=== PATIENT | female | born 1955 | race Hispanic/Latino ===

== ENCOUNTER 2024-12-31 14:59 | Emergency (ER) | payer OTHER, MEDICARE ==
[2024-12-31] MEDS ORDERED: MECLIZINE HCL 12.5 MG TAB ONE (15:50)
[2024-12-31 16:16] LABS: Absolute Lymphocytes (CBC) 0.9 K/uL (0.7-4.9); Hematocrit 37.6 % (36.0-45.0); Hemoglobin 12.4 g/dL (12.0-15.0); MCH 27.5 pg (27.0-35.0); MCHC 32.9 g/dL (32.0-36.0); MCV 83.5 fL (80-100); MPV 7.6 fL (7.6-11.3); Nucleated RBC Absolute Count 0.0 (0-0); Nucleated Red Blood Cells % 0.1 % (0-0); RBC Red Blood Cell Count 4.50 M/uL (3.86-4.86); White Blood Count 8.50 thou/uL (4.3-10.9)
[2024-12-31 16:37] LABS: ALT/SGPT 36 U/L (13-56); AST/SGOT 17 U/L (15-37); Albumin 3.5 g/dL (3.4-5.0); Albumin/Globulin Ratio 0.9 (1.1-1.8); Alkaline Phosphatase 65 U/L (45-117); Anion Gap 9.6 mEq/L (5.0-15.0); BUN Blood Urea Nitrogen 14 mg/dL (7-18); Bilirubin Indirect, Calculated 0.1 mg/dL (0.2-0.8); Globulin 3.9 g/dL (2.3-3.5); Glucose Level 134 mg/dL (74-106); Magnesium 2.0 mg/dL (1.6-2.4); Potassium 3.6 mEq/L (3.5-5.1); Troponin High Sensitivity 5.2 pg/mL (<58.9)
--- NOTE | 2024-12-31 17:17 | RAD REPORT ---
EXAM: CT Head Brain Wo Cont HISTORY: dizziness, vomiting, headache COMPARISON: None TECHNIQUE: Multiple contiguous axial images were obtained for a CT of the brain without contrast. Sag ittal and coronal reformats were performed. One or more of the following dose reduction techniques were used: Automated exposure control, adjus tment of the mA and kV according to patient size, and iterative reconstruction. Unless otherwise specified, incidental findings do not require dedicated imaging follow-up. FINDINGS: No evidence of hydrocephalus, intracranial hemorrhage, or extra-axial fluid collection. The brain is normal in morphology. The calvarium is intact. The visualized paranasal sinuses and mastoid air cells are essentially clear . IMPRESSION: No evidence of acute intracranial abnormality.
--- NOTE | 2024-12-31 17:22 | RAD REPORT ---
EXAMINATION: ONE VIEW CHEST XR CLINICAL INDICATION: Female, 69 years old.,PALPITATIONS TECHNIQUE: Frontal chest projection is submitted. Examination is limited by patient positioning and t echnique. COMPARISON: No prior exam. FINDINGS: The lungs are well inflated and clear apart from right infrahilar 1.4 cm nodular opacity. No pneumot horax or sizable effusion. The heart is normal in size. Mediastinal contours are unremarkable. IMPRESSION: No acute consolidation. Infrahilar 4 cm nodular opacity, could represent a granuloma, however deserves additional by CT chest to exclude a suspicious nodule.
--- NOTE | 2024-12-31 18:47 | EDPHYS ---
Physician Documentation [facility] Name: Maia Swift Age: 69 yrs Sex: Female : 1955 Arrival Date: 12/31/2024 Time: 14:59 Bed 18 Private MD: ED Physician Sudeep Alanis HPI: 12/31 18:59 This 69 yrs old Female presents to ER via Wheelchair with complaints of ms3 Dizziness, Palpitations, Nausea/Vomiting, Jaw Pain, Headache. 18:59 69-year-old female with past medical history of hypothyroidism and anxiety [place] [facility] [place] for dizziness, palpitations, nausea and vomiting that began this morning. Patient states when she opens her eyes, walks, or moves her head the dizziness becomes worse. Patient states the dizziness is better with closing her eyes and not moving her head. Patient also has experienced palpitations. Patient endorses nausea and vomiting. . Historical: - Allergies: 15:31 Phenergan; dd2 - PMHx: 15:31 Hypothyroidism; Anxiety; dd2 - PSHx: 15:31 None; dd2 - Immunization history:: Adult Immunizations unknown. - Infectious Disease History:: Denies. - Social history:: Smoking status: Patient denies any tobacco usage or history of. ROS: 18:59 MS/Extremity: Negative for injury and deformity, Skin: Negative for injury, rash, and ms3 discoloration, 18:59 Constitutional: Negative for fever, and chills. Respiratory: Negative for shortness of breath, cough, wheezing, and pleuritic chest pain, 18:59 Cardiovascular: Positive for palpitations, 18:59 Abdomen/GI: Positive for nausea and vomiting, 18:59 Neuro: Positive for dizziness, Exam: 17:40 ECG was reviewed by the Attending Physician. ms3 18:59 Constitutional: This is a well developed, well nourished patient who is awake, alert, ms3 and in no acute distress. Cardiovascular: Regular rate and rhythm with a normal S1 and S2. No gallops, murmurs, or rubs. Normal PMI, no JVD. No pulse deficits. Respiratory: Lungs have equal breath sounds bilaterally, clear to auscultation and percussion. No rales, rhonchi or wheezes noted. No increased work of breathing, no retractions or nasal flaring. Abdomen/GI: Soft, non-tender, with normal bowel sounds. No distension or tympany. No guarding or rebound. No evidence of tenderness throughout. Skin: Warm, dry with normal turgor. Normal color with no rashes, no lesions, and no evidence of cellulitis. MS/ Extremity: Pulses equal, no cyanosis. Neurovascular intact. Full, normal range of motion. Neuro: Awake and alert, GCS 15, oriented to person, place, time, and situation. Cranial nerves II-XII grossly intact. Motor strength 5/5 in all extremities. Sensory grossly intact. Cerebellar exam normal. Normal gait. Vital Signs: 15:28 BP 154 / 94; Pulse 80; Resp 16; Temp 98.5; Pulse Ox 100% on R/A; Pain 4/10; dd2 16:00 BP 152 / 78; Pulse 84; Resp 18; Pulse Ox 97% ; rg5 17:54 BP 145 / 80; Pulse 76; Resp 18; Pulse Ox 98% ; rg5 15:28 Pain Scale: Adult dd2 NIH Stroke Scale Scores: 18:59 NIHSS Score: 0 ms3 MDM: 15:33 Medical Screening Exam initiated ms3 18:59 Differential diagnosis: cardiac arrhythmia, generalized weakness, idiopathic dizziness, ms3 vertigo, Intracranial hemorrhage. Data reviewed: vital signs, nurses notes, lab test result(s), EKG, radiologic studies, and as a result, I will discharge patient. I considered the following discharge prescriptions or medication management in the emergency department Medications were administered in the Emergency Department. See MAR. Independent interpretation of the following test(s) in the Emergency Department CT Scan: My interpretation is CT head images without IV contrast reviewed by me did not reveal intracranial hemorrhage. Counseling: I had a detailed discussion with the patient and/or guardian regarding the historical points, exam findings, and any diagnostic results supporting the discharge/admit diagnosis, lab results, radiology results, the need for outpatient follow up, to return to the emergency department if symptoms worsen or persist or if there are any questions or concerns that arise at home. Special discussion: I discussed with the patient/guardian in detail that at this point there is no indication for admission to the hospital. It is understood, however, that if the symptoms persist or worsen the patient needs to return immediately for re-evaluation. ED course: On reevaluation patient symptoms improved, patient is alert and orient x 4, no apparent distress, nontoxic-appearing, speaking full sentences, tolerating p.o. Patient's neurologic exam remains normal. Patient to follow-up with her primary care physician 2 to 3 days. All questions were answered. Return precautions were discussed include worsening symptoms, or any other concerns.. 12/31 15:34 Order name: Basic Metabolic Panel; Complete Time: 16:39 ms3 12/31 15:34 Order name: CBC with Diff ms3 12/31 15:34 Order name: LFT's; Complete Time: 16:39 ms3 12/31 15:34 Order name: Magnesium; Complete Time: 16:39 ms3 12/31 15:34 Order name: Troponin HS; Complete Time: 16:39 ms3 12/31 16:28 Order name: CBC Smear Scan EDMS 12/31 15:34 Order name: XRAY Chest (1 view); Complete Time: 17:48 ms3 12/31 15:34 Order name: CT Head Brain wo Cont; Complete Time: 17:48 ms3 12/31 15:34 Order name: EKG; Complete Time: 15:34 ms3 12/31 15:34 Order name: Cardiac monitoring; Complete Time: 16:45 ms3 12/31 15:34 Order name: EKG - Nurse/Tech; Complete Time: 16:45 ms3 12/31 15:34 Order name: IV Saline Lock; Complete Time: 16:45 ms3 12/31 15:34 Order name: Labs collected and sent; Complete Time: 16:45 ms3 12/31 15:34 Order name: O2 Per Protocol; Complete Time: 16:45 ms3 12/31 15:34 Order name: O2 Sat Monitoring; Complete Time: 16:45 ms3 EC:40 Rate is 73 beats/min. Rhythm is regular. QRS [place] is Normal. PA interval is normal. QRS ms3 interval is normal. Clinical impression: Normal ECG. Interpreted by me. Reviewed by me. Administered Medications: 15:53 Drug: Meclizine PO 50 mg PO once Route: PO; rg5 16:15 Follow up: Response: No adverse reaction rg5 Disposition Summary: 12/31/24 18:47 Discharge Ordered Notes: Location: Home ms3 Condition: Stable ms3 Diagnosis - Dizziness ms3 - Nausea with vomiting, unspecified ms3 Followup: ms3 - With: Private Physician - When: 2 - 3 days - Reason: Recheck today's complaints Discharge Instructions: - Discharge Summary Sheet ms3 - Benign Positional Vertigo ms3 - Nausea and Vomiting, Adult ms3 - Dizziness, [id number] ms3 Forms: - Medication Reconciliation Form ms3 - Antibiotic Education ms3 - Prescription Opioid Use ms3 - Patient Portal Instructions ms3 - Leadership Thank You Letter ms3 Prescriptions: - Meclizine 25 mg Oral Tablet - take 1 tablet ORAL route every 8 hours As needed; 30 tablet; Refills: 0, ms3 Product Selection Permitted NIH Stroke Scale - NIH Stroke Score Date: 12/31/2024 Time: 18:59 Total Score = 0 10. Dysarthria (speech clarity - read or repeat words) - 0(Normal) 11. Extinction and Inattention (visual/tactile/auditory/spatial/personal) - 0(No abnormality) 1a. Level of Consciousness (LOC) - 0(Alert) 1b. Level of Consciousness (LOC) (Month \T\ Age) - 0(Both) 1c. LOC Commands (Open \T\ Closes Eyes/Decorator Lighting Fixtures) - 0(Both) 2. Best Gaze (Lateral Gaze Paresis) - 0(Normal) 3. Visual Field Loss - 0(No visual loss) 4. Facial Palsy - 0(Normal) 5a. Left Arm: Motor (10-second hold) - 0(No drift) 5b. Right Arm: Motor (10-second hold) - 0(No drift) 6a. Left Leg: Motor (5-second hold - always test supine) - 0(No drift) 6b. Right Leg: Motor (5-second hold - always test supine) - 0(No drift) 7. Limb Ataxia (finger/nose \T\ heel/weiss - test with eyes open) - 0(Absent) 8. Sensory Loss (pinprick arms/legs/face) - 0(Normal) 9. Best Language: Aphasia (description/naming/reading) - 0(No aphasia) Initials: ms3 Signatures: Dispatcher [employer] EDMS Sudeep Alanis, DO ms3 Aidan Mcknight, RN RN rg5 RAFITA PEREA RN RN dd2 Corrections: (The following items were deleted from the chart) 15:34 15:34 BASIC METABOLIC PANEL+C.LAB.BRZ ordered. EDMS EDMS 15:34 15:34 CBC+H.LAB.BRZ ordered. EDMS EDMS 15:34 15:34 HEPATIC FUNCTION+C.LAB.BRZ ordered. EDMS EDMS 15:34 15:34 MAGNESIUM+C.LAB.BRZ ordered. EDMS EDMS 15:34 15:34 Troponin High Sensitivity+C.LAB.BRZ ordered. EDMS EDMS
--- NOTE | 2024-12-31 18:47 | ER ---
Nurse's Notes [facility] Name: Maia Swift Age: 69 yrs Sex: Female : 1955 Arrival Date: 12/31/2024 Time: 14:59 Bed 18 Private MD: Diagnosis: Dizziness;Nausea with vomiting, unspecified Presentation: 12/31 15:28 Chief complaint: Patient states: SHE BECAME DIZZY THIS MORNING, STARTED SWEATING, dd2 PALPITATIONS AND NAUSEA. PT REPORTS BECOMING VERY DIZZY WHEN WALKING AND STARTED VOMITING. REPORTS LT EAR PAIN. Coronavirus screen: At this time, the client does not indicate any symptoms associated with coronavirus-19. Ebola Screen: No symptoms or risks identified at this time. Initial Sepsis Screen: Does the patient meet any 2 criteria? No. Patient's initial sepsis screen is negative. Does the patient have a suspected source of infection? No. Patient's initial sepsis screen is negative. Risk Assessment: Do you want to hurt yourself or someone else? Patient reports no desire to harm self or others. Onset of symptoms was December 31, 2024. 15:28 Method Of Arrival: Wheelchair dd2 15:28 Acuity: KATE 3 dd2 Triage Assessment: 15:31 General: Appears uncomfortable, ill, Behavior is calm, cooperative, appropriate for dd2 age. Pain: Complains of pain in left ear. Neuro: Reports dizziness, headache. Cardiovascular: Reports palpitations. GI: Reports nausea, vomiting. Historical: - Allergies: 15:31 Phenergan; dd2 - PMHx: 15:31 Hypothyroidism; Anxiety; dd2 - PSHx: 15:31 None; dd2 - Immunization history:: Adult Immunizations unknown. - Infectious Disease History:: Denies. - Social history:: Smoking status: Patient denies any tobacco usage or history of. Screenin:[address] [facility] ED Fall Risk Assessment (Adult) History of falling in the last 3 months, rg5 including since admission No falls in past 3 months (0 pts) Confusion or Disorientation No (0 pts) Intoxicated or Sedated No (0 pts) Impaired Gait No (0 pts) Mobility Assist Device Used No (0 pt) Altered Elimination No (0 pt) Score/Fall Risk Level 0 - 2 = Low Risk Oriented to surroundings, Maintained a safe environment. Abuse screen: Denies threats or abuse. Nutritional screening: No deficits noted. Tuberculosis screening: No symptoms or risk factors identified. Assessment: 16:00 General: Appears in no apparent distress. comfortable, Behavior is calm, appropriate rg5 for age. Pain: Complains of pain in head Quality of pain is described as aching. Neuro: Level of Consciousness is awake, alert, obeys commands, Oriented to person, place, time, situation, Reports dizziness. Cardiovascular: Patient's skin is warm and dry. Respiratory: Airway is patent Trachea midline Respiratory effort is even, unlabored. GI: Abdomen is round non-distended, Reports nausea, vomiting. : No signs and/or symptoms were reported regarding the genitourinary system. EENT: No signs and/or symptoms were reported regarding the EENT system. Derm: Skin is intact, Skin is dry, Skin is normal, Skin temperature is warm. Musculoskeletal: Circulation, motion, and sensation intact. Range of motion: intact in all extremities. 17:55 Reassessment: No changes from previously documented assessment. Patient and/or family rg5 updated on plan of care and expected duration. Pain level reassessed. Patient is alert, oriented x 3, equal unlabored respirations, skin warm/dry/pink. Vital Signs: 15:28 BP 154 / 94; Pulse 80; Resp 16; Temp 98.5; Pulse Ox 100% on R/A; Pain 4/10; dd2 16:00 BP 152 / 78; Pulse 84; Resp 18; Pulse Ox 97% ; rg5 17:54 BP 145 / 80; Pulse 76; Resp 18; Pulse Ox 98% ; rg5 15:28 Pain Scale: Adult dd2 Vitals: 16:53 Cardiac Rhythm Assessment Regular Sinus rhythm. rg5 NIH Stroke Scale Scores: 18:59 NIHSS Score: 0 ms3 ED Course: 15:02 Patient arrived in ED. cj3 15:03 Sudeep Alanis DO is Attending Physician. ms3 15:31 Triage completed. dd2 15:31 Arm band placed on right wrist. dd2 15:46 Aidan Mcknight, IDA is Primary Nurse. rg5 16:00 Patient has correct armband on for positive identification. Bed in low position. Call rg5 light in reach. Side rails up X 1. Door closed. Noise minimized. 16:00 No provider procedures requiring assistance completed. Inserted saline lock: 20 gauge rg5 in right antecubital area, using aseptic technique. Blood collected. Flushed with 10 mL NS. Patient maintains SpO2 saturation greater than 95% on room air. 16:21 CT Head Brain wo Cont In Process Unspecified. EDMS 16:32 XRAY Chest (1 view) In Process Unspecified. EDMS 19:06 IV discontinued, bleeding controlled, No redness/swelling at site. Pressure dressing rg5 applied. Administered Medications: 15:53 Drug: Meclizine PO 50 mg PO once Route: PO; rg5 16:15 Follow up: Response: No adverse reaction rg5 Medication: 16:00 VIS not applicable for this client. rg5 Outcome: 18:47 Discharge ordered by MD. ms3 19:05 Discharged to home ambulatory, rg5 19:05 Condition: stable 19:05 Discharge instructions given to patient, Instructed on discharge instructions, Demonstrated understanding of instructions, follow-up care, Prescriptions given X 1, 19:06 Patient left the ED. rg5 NIH Stroke Scale - NIH Stroke Score Date: 12/31/2024 Time: 18:59 Total Score = 0 10. Dysarthria (speech clarity - read or repeat words) - 0(Normal) 11. Extinction and Inattention (visual/tactile/auditory/spatial/personal) - 0(No abnormality) 1a. Level of Consciousness (LOC) - 0(Alert) 1b. Level of Consciousness (LOC) (Month \T\ Age) - 0(Both) 1c. LOC Commands (Open \T\ Closes Eyes/Electrical Manufacturing Engineer) - 0(Both) 2. Best Gaze (Lateral Gaze Paresis) - 0(Normal) 3. Visual Field Loss - 0(No visual loss) 4. Facial Palsy - 0(Normal) 5a. Left Arm: Motor (10-second hold) - 0(No drift) 5b. Right Arm: Motor (10-second hold) - 0(No drift) 6a. Left Leg: Motor (5-second hold - always test supine) - 0(No drift) 6b. Right Leg: Motor (5-second hold - always test supine) - 0(No drift) 7. Limb Ataxia (finger/nose \T\ heel/weiss - test with eyes open) - 0(Absent) 8. Sensory Loss (pinprick arms/legs/face) - 0(Normal) 9. Best Language: Aphasia (description/naming/reading) - 0(No aphasia) Initials: ms3 Signatures: Dispatcher [employer] EDSudeep [place], DO FLORES ms3 Aidan Mcknight, RN RN rg5 RAFITA PEREA RN RN dd2 Tracy Garcia cj3
[2024-12-31 19:42] LABS: White Blood Cell Scan OK (OK)
[2024-12-31 19:43] LABS: Blood Morphology Comment NOT SEEN (NOT SEEN)
[2024-12-31 21:32] VITALS: TEMP 98.5
[2024-12-31 21:35] VITALS: BP 145/80; O2SAT 98
== END 2024-12-31 19:06 | disposition home or self-care (01) ==
LOC: ER 14:59
DX: R42 Dizziness and giddiness (principal); R11.2 Nausea with vomiting, unspecified; R51.9 Headache, unspecified; F41.9 Anxiety disorder, unspecified
CPT/HCPCS: 93005; 85025; 80048; 36415; 83735; 80076; 84484; 70450; 71045; J8597; 99284